=== PATIENT | male | born 1970 | race Caucasian/White ===

== ENCOUNTER 2021-01-30 08:01 | Outpatient (CLI) | payer OTHER ==
[2021-01-30] MEDS ORDERED: ALBU2.5V11 NEB (08:25)
[2021-01-30] MEDS ORDERED: ALBU8.5H8 INH (08:25)
[2021-01-30] MEDS ORDERED: FLUT1BLS INH (08:25)
[2021-01-30] MEDS ORDERED: THEO300T26 PEG (08:25)
== END 2021-01-30 23:59 | disposition home or self-care (01) ==
LOC: STAR 08:01
PROVIDERS: ATTEND Surgery
DX: Z20.822 Contact with and (suspected) exposure to COVID-19 (principal)
CPT/HCPCS: U0003

== ENCOUNTER 2021-02-05 08:22 | Day surgery (SDC) | payer OTHER ==
[~2021-02-05] VITALS: Ht 172.7 cm; Wt 102.0 kg
[~2021-02-05 08:22] MED LIST: ALBU2.5V11 NEB; ALBU8.5H8 INH; FLUT1BLS INH; THEO300T26 PEG
[2021-02-05] MEDS ORDERED: CHLORHEXIDINE 15 ML UDC MM ONE (09:00)
[2021-02-05] MEDS ORDERED: LIDOCAINE-MPF 1%, 2ML INFIL ONE (09:00)
[2021-02-05] MEDS ORDERED: LACTATED RINGERS 1,000 ML IV SCH (09:00)
[2021-02-05] MEDS ORDERED: FENTANYL PF 250 MCG/5ML ONE ×2 (09:26→11:29)
[2021-02-05] MEDS ORDERED: MIDAZOLAM 1 MG/ML, 2ML ONE (09:26)
[2021-02-05] MEDS ORDERED: ROCURONIUM 10MG/ML,5ML ONE (09:27)
[2021-02-05] MEDS ORDERED: NEOSTIGMINE 1 MG/ML, 10ML ONE (09:27)
[2021-02-05] MEDS ORDERED: PROPOFOL 10 MG/ML, 20ML ONE (09:27)
[2021-02-05] MEDS ORDERED: GLYCOPYRROLATE 0.2MG/1ML, 5ML ONE (09:27)
[2021-02-05] MEDS ORDERED: CEFAZOLIN 1,000 MG ONE (09:27)
[2021-02-05] MEDS ORDERED: BUPIVACAINE/PF 0.25% ONE (09:49)
[2021-02-05] MEDS ORDERED: EPINEPHRINE 1 MG/ML, 1ML ONE (09:49)
[2021-02-05] MEDS ORDERED: morphine SULFATE 10 MG/ML, 1ML IVPush PRN (10:00)
[2021-02-05] MEDS ORDERED: ACETAMINOPHEN 325 MG TABLET PO PRN (10:00)
[2021-02-05] MEDS ORDERED: LABETALOL 5MG/ML, 20ML IV PRN (10:00)
[2021-02-05] MEDS ORDERED: ONDANSETRON 2MG/ML, 2ML IVPush PRN (10:00)
[2021-02-05] MEDS ORDERED: hydrALAzine 20 MG/ML, 1ML IV PRN (10:00)
[2021-02-05] MEDS ORDERED: MEPERIDINE/PF 25MG/0.5ML IVPush PRN (10:00)
[2021-02-05] MEDS ORDERED: OXYcodone 5 MG/5 ML ORAL.SOL UDC PO PRN (10:00)
[2021-02-05] MEDS ORDERED: OXYC-302 PO (11:53)
[2021-02-05] MEDS ORDERED: MEPERIDINE/PF 25MG/ML,1ML ONE (12:03)
[2021-02-05] MEDS ORDERED: ACETAMINOPHEN 650 MG/20.3 ML UDC ONE (12:18)
[2021-02-05] MEDS ORDERED: OXYcodone 5 MG/5 ML ORAL.SOL UDC ONE ×2 (12:19→12:26)
[2021-02-05] MEDS ORDERED: FENTANYL PF 100 MCG/2ML ONE ×2 (12:19→12:32)
[2021-02-05] MEDS: FENTANYL PF 100 MCG/2ML IV PRN ×4 (12:20→12:39)
[2021-02-05] MEDS ORDERED: HYDROmorphone 1 MG/ML, 1ML INJ ONE (12:42)
[2021-02-05] MEDS: HYDROmorphone 1 MG/ML, 1ML INJ IVPush PRN ×2 (12:47→12:54)
== END 2021-02-05 15:00 | disposition home or self-care (01) ==
LOC: OUT 08:22
PROVIDERS: ATTEND Surgery
DX: K40.90 Unilateral inguinal hernia, without obstruction or gangrene, not specified as recurrent (principal); J45.909 Unspecified asthma, uncomplicated; Z79.899 Other long term (current) drug therapy; Z88.6 Allergy status to analgesic agent
CPT/HCPCS: 49650; C1727; C1781; J0171; J0690; J1170; J2175; J2250; J2704; J2710; J3010; J7120